=== PATIENT | female | born 1955 | race Caucasian/White ===

== ENCOUNTER 2022-04-19 11:38 | Day surgery (SDC) | payer MEDICARE ==
[2022-04-16 11:53] VITALS: BMI 38.7
[~2022-04-19 11:38] MED LIST: DEXAMETHASONE SOD PHOSPHATE 4 MG/ML 1 ML VIAL IV ONE; HYDROmorphone 0.5 MG/0.5 ML SYRINGE IVP PRN; LIDOCAINE 1% (10MG/ML) FOR IV START INTRADERMA PRN; ONDANSETRON 4 MG/2 ML VIAL IVP ONE
[2022-04-19] MEDS: LACTATED RINGERS 1,000 ML IV SCH ×2 (13:16→14:14)
[2022-04-19 13:36] LABS: Albumin 4.1 g/dL (3.5-5.0); Calcium 9.1 mg/dL (8.4-10.2); Potassium 4.7 mmol/L (3.5-5.1); Total Bilirubin 0.7 mg/dL (0.2-1.3); Total Protein 7.4 g/dL (6.3-8.2)
[2022-04-19] MEDS ORDERED: fentaNYL (PF) 50 MCG/ML 2 ML AMP IVP ONE (13:50)
[2022-04-19] MEDS ORDERED: MIDAZOLAM 2 MG/2 ML VIAL IVP ONE (13:50)
[2022-04-19] MEDS ORDERED: fentaNYL (PF) 50 MCG/ML 2 ML AMP ONE (14:12)
[2022-04-19] MEDS ORDERED: LIDOCAINE 2% INJ 20 MG/ML (2 ML VIAL) ONE (14:12)
[2022-04-19] MEDS ORDERED: SUCCINYLCHOLINE CHLORIDE 100 MG/5 ML SYR IV ONE (14:12)
[2022-04-19] MEDS ORDERED: SODIUM CHLORIDE 0.9% (PF) 10 ML VIAL ONE (14:12)
[2022-04-19] MEDS ORDERED: ROPIVACAINE 5 MG/ML 30 ML VIAL ONE (14:12)
[2022-04-19] MEDS ORDERED: hydrALAZINE HCL 20 MG/ML 1 ML VIAL ONE (14:12)
[2022-04-19] MEDS ORDERED: HYDROmorphone (PF) 1 MG/ML ONE (14:12)
[2022-04-19] MEDS ORDERED: PROPOFOL 10 MG/ML 20 ML VIAL IV ONE (14:12)
[2022-04-19] MEDS ORDERED: GLYCOPYRROLATE 0.2 MG/ML 2 ML VIAL ONE (14:12)
[2022-04-19] MEDS ORDERED: ceFAZolin 1,000 MG in SODIUM CHLORIDE 0.9% 1,000 ML IRRIGATION ONE (14:44)
--- NOTE | 2022-04-19 15:10 | P.OP ---
Date of Procedure: 04/19/22 Procedure(s) Performed: PREOPERATIVE DIAGNOSES: 1. Left ankle lateral and medial malleolus fracture, Hill B bimalleolar fracture POSTOPERATIVE DIAGNOSES: Left ankle lateral and medial malleolus fracture PROCEDURES PERFORMED: 1. Left ankle lateral malleolus fracture open reduction and internal fixation. 2. Left ankle medial malleolus fracture closed treatment ANESTHESIA: clinical nursing coordinator: Radha Jimenez PA-C (assistance with exposure, hemostasis, retraction, fixation, closure, dressing, splint) COMPLICATIONS: None ESTIMATED BLOOD LOSS: Less than 10 mL. TOURNIQUET: approximately 30 minutes DISPOSITION: To post-anesthesia care unit INDICATIONS: The patient is a 66-year-old female, who presents to the operating room today for fixation of ankle fracture. The fracture is a bimalleolar fracturedislocation, with a fracture of the lateral malleolus that is high enough to produce talar instability. The medial malleolus fracture is a simple avulsion type fracture. I have discussed these issues with the patient, who wishes to proceed with the operative plan. I have explained the details of this surgery thoroughly and also explained the potential risks and complications. These are inclusive of, but not limited to: bleeding, infection, scarring, discomfort, blood vessel and nerve damage, stiffness, weakness, need for further surgery, failure to relieve symptoms, persistence or worsening of problems, , and other risks. The patient is aware of these risks and agrees to proceed with surgery. The consent form has been signed. PROCEDURE: After appropriate consent was obtained, the patient was taken to the operating room and placed supine on the operating table. General anesthesia was initiated. The ankle was removed from the splint and examined for any signs of significant fracture blisters or swelling that would prevent continuation of the surgery. Skin appeared healthy and intact, swellling was moderate but not excessive. C-arm imaging was then used to interrogate the fracture site and document instability. With external rotation of the ankle, there was lateral talar translation by approximately 4 mm or so. This was indicative of talar instability. The limb was prepped and draped in the usual aseptic fashion with DuraPrep, and the patient was given IV antibiotics. The tourniquet was then inflated to 300 mmHg after careful exsanguination of the limb. Time out was called, confirming patient identity, side, procedure, and administration of antibiotics. Incision was created laterally, centered over the fracture site, for a length of approximately 4 inches. The incision was carried down through skin and into subcutaneous tissues, and blunt dissection then proceeded down to fascia. Fascia was split in line with the incision and the peroneal muscles were retracted posteriorly. The fracture site was exposed with subperiosteal di ssection for as much exposure of the bone as was necessary. Fracture hematoma was evacuated and the interior of the fracture site was meticulously cleansed with irrigation and manual extraction of organizing hematoma and bone debris. The fracture was minimally comminuted and oblique in orientation. Bone was noted to be quite osteoporotic. The fracture was mobilized using a whitaker elevator and reduction was accomplished using a bone clamp, which was also used to secure the fracture. Anatomic reduction was accomplished. An interfragmentary screw, posterior to anterior, was placed using lag te chnique. Next, a precontoured fibular plate from [employer] was selected for size and side. The proximal holes were filled with fully threaded 3.5 mm cortical screws. Distal holes were filled with 2.7 mm locking screws. No evidence of joint penetration on the C-arm views was noted. The fracture was noted to be in anatomic position and stress testing under C-arm imaging showed no significant migration, shift, or tilt of the talus with external rotation stress, hindfoot inversion or eversion. Screw lengths were noted to be appropriate and the incision was then irrigated thoroughly using normal saline. Tourniquet was deflated and hemostasis was obtained using electrocautery. Fascial closure was performed with 0-Vicryl suture, subcutaneous closure with 2-0 Vicryl suture. Skin was closed with running 4-0 Monocryl suture and cyanoacrylate. Sterile dressing was applied and well padded, well molded short leg splint was applied with the ankle in neutral. Patient tolerated the procedure well and taken to recovery room in stable condition. Sponge and needle counts were correct.
[2022-04-19 15:48] VITALS: RESP 16; TEMP 97.8
[2022-04-19] MEDS ORDERED: KETOROLAC 15 MG/ML 1 ML VIAL IVP ONE (15:59)
[2022-04-19] MEDS ORDERED: HYDROmorphone 0.5 MG/0.5 ML SYRINGE IVP ONE (16:05)
--- NOTE | 2022-04-19 16:57 | XR ---
EXAMINATION TYPE: XR ankle limited RT DATE OF EXAM: 04/19/2022 COMPARISON: NONE TECHNIQUE: Two views submitted HISTORY: Post op FINDINGS: There is postsurgical change in near anatomic alignment. There is soft tissue edema and emphysema. IMPRESSION: 1. Postoperative change. Appears in near-anatomic alignment
--- NOTE | 2022-04-19 16:58 | FL ---
EXAMINATION TYPE: FL guidance operating room DATE OF EXAM: 04/19/2022 HISTORY: Fluoroscopy time 5 seconds of fluoroscopy provided. IMPRESSION: 1. Fluoroscopy time.
[2022-04-19 17:14] VITALS: BP 134/85; PULSE 66
--- NOTE | 2022-04-19 17:39 | P.ANPRN ---
Procedure Note - Anesthesia - Nerve Block Performed Right Popliteal Single Time Out Performed: Yes (1349) Date of Procedure: 04/19/22 Procedure Start Time: 13:50 Procedure Stop Time: 13:56 Location of Patient: PreOp Indication: Acute Post-Operative Pain, Requested by Surgeon Specifically requested for management of pain by DrEdvin: Jeff Mario Sedation Type: Sedate with meaningful contact maintained Preparation: Sterile Prep Position: Left Lateral Catheter: None Needle Types: Pajunk Needle Gauge: 21 Ultrasound used to visualize needle placement: Yes Ultrasound used to observe medication spread: Yes Injectate: 0.5% Ropivacaine (see comment for volume) (15cc + 5cc nacl) Blood Aspirated: No Pain Paresthesia on Injection Noted: No Resistance on Injection: Normal Image Stored and Saved: Yes Events: Uneventful and Well Tolerated
--- NOTE | 2022-04-19 17:39 | P.ANPRN ---
Procedure Note - Anesthesia - Nerve Block Performed Right Adductor Canal Single Time Out Performed: Yes (1349) Date of Procedure: 04/19/22 Procedure Start Time: 13:57 Procedure Stop Time: 13:59 Location of Patient: PreOp Indication: Acute Post-Operative Pain, Requested by Surgeon Specifically requested for management of pain by DrEdvin: Jeff Mario Sedation Type: Sedate with meaningful contact maintained Preparation: Sterile Prep Position: Supine Catheter: None Needle Types: Pajunk Needle Gauge: 21 Ultrasound used to visualize needle placement: Yes Ultrasound used to observe medication spread: Yes Injectate: 0.5% Ropivacaine (see comment for volume) (15cc + 5cc nacl) Blood Aspirated: No Pain Paresthesia on Injection Noted: No Resistance on Injection: Normal Image Stored and Saved: Yes Events: Uneventful and Well Tolerated
== END 2022-04-19 17:46 | disposition home or self-care (01) ==
LOC: OR 11:38
PROVIDERS: ATTEND Orthopaedic Surgery
DX: M80.071A Age-related osteoporosis with current pathological fracture, right ankle and foot, initial encounter for fracture (principal); G89.18 Other acute postprocedural pain; G47.33 Obstructive sleep apnea (adult) (pediatric); I48.0 Paroxysmal atrial fibrillation; E78.5 Hyperlipidemia, unspecified; I10 Essential (primary) hypertension; E66.9 Obesity, unspecified; Z68.38 Body mass index [BMI] 38.0-38.9, adult; Z79.899 Other long term (current) drug therapy; Z79.82 Long term (current) use of aspirin; Z79.01 Long term (current) use of anticoagulants; Z82.49 Family history of ischemic heart disease and other diseases of the circulatory system; Z85.828 Personal history of other malignant neoplasm of skin; Z86.16 Personal history of COVID-19; Z91.040 Latex allergy status; Z86.59 Personal history of other mental and behavioral disorders; Z80.9 Family history of malignant neoplasm, unspecified
CPT/HCPCS: 64447; 64445; 76942; 80053; 73600; 27814; C1713; J2250; J0360; J1100; J0690 ×2; J2405; J3010; J1170 ×2; J2795; J1885; J0330; J2704; J2001

== ENCOUNTER → 2024-08-13 | Day surgery (SDC) | payer MEDICARE ==
[2024-08-08 13:50] VITALS: BMI 37.9
[~2024-08-13] MED LIST changes: -DEXAMETHASONE SOD PHOSPHATE 4 MG/ML 1 ML VIAL IV ONE; -HYDROmorphone 0.5 MG/0.5 ML SYRINGE IVP PRN; +LIDOCAINE 1% INJ 10MG/ML (20 ML MDV) ONE; -ONDANSETRON 4 MG/2 ML VIAL IVP ONE; +PROPOFOL 10 MG/ML 20 ML VIAL IV ONE
[2024-08-13] MEDS: LACTATED RINGERS 1,000 ML IV SCH (11:22)
[2024-08-13 11:25] VITALS: TEMP 97.2
[2024-08-13] MEDS: IV FLUID CONTINUATION 1,000 ML IV ONE (11:26)
--- NOTE | 2024-08-13 12:12 | P.PCN ---
Date of Procedure: 08/13/24 Preoperative Diagnosis: Positive Cologuard Postoperative Diagnosis: Internal hemorrhoids Procedure(s) Performed: Colonoscopy Anesthesia: MAC Surgeon: Taj Arenas Pathology: none sent Condition: stable Disposition: same day Indications for Procedure: 68-year-old female with recent finding of positive Cologuard test. Plan is for colonoscopy for further evaluation. Risks, benefits and alternatives were provided to the patient. All questions answered. Operative Findings: Internal hemorrhoids Description of Procedure: The patient was brought to the endoscopy suite. He was then placed in left lateral decubitus position and adequate sedation achieved using conscious sedation. A digital rectal exam was performed and mild internal hemorrhoids were palpated. An endoscope was then placed in the rectum and advanced to the cecum as identified by landmarks including the appendiceal orifice and the ileocecal valve. The prep was good. The colonoscope was then slowly withdrawn, examining for any mucosal abnormalities. The cecum, ascending, transverse, descending and sigmoid colon were visualized adequately. No polyps were noted. No significant finding of diverticulosis. No inflamed lesions. No obvious active signs of bleeding. Retroflexion was performed in the rectum and mild internal hemorrhoids were visible. Excess air was removed. The colonoscope withdrawn and the procedure terminated. The patient was then transferred to the recovery unit in stable condition. Repeat colonoscopy should be performed in 5 years.
[2024-08-13 12:31] VITALS: RESP 14
[2024-08-13 12:55] VITALS: BP 166/99; PULSE 68
== END | disposition home or self-care (01) ==
LOC: ORWHC2ENDO 09:46
PROVIDERS: ATTEND Surgery
CPT/HCPCS: 45378